=== PATIENT | female | born 1970 | race Caucasian/White ===

== ENCOUNTER 2017-04-29 16:10 | Emergency (ER) | payer OTHER ==
[2017-04-29] MEDS ORDERED: NORMAL SALINE 10 ML SYRINGE FLUSH IVP PRN (16:25)
[2017-04-29] MEDS: Sodium Chloride 0.9% 1,000 ML PRIMARY IV ONE (16:30)
[2017-04-29] MEDS: diphenhydrAMINE 50 MG/1 ML VIAL IVP ONE (16:34)
[2017-04-29] MEDS: methylPREDNISolone 125 MG/2 ML VIAL IVP ONE (16:36)
[2017-04-29] MEDS: Famotidine Inj 20 MG in Normal Saline Flush 10 ML IVP ONE (16:39)
[2017-04-29 16:43] VITALS: RESP 16; TEMP 97.8
[2017-04-29] MEDS: LORazepam 2 MG/1 ML VIAL IVP ONE (17:45)
--- NOTE | 2017-04-29 20:03 | PDOC ---
Skin Rash/Insect/Abscess HPI - General Chief Complaint: Integumentary Stated Complaint: STUNG BY BEE FEEL SWELLING Date Seen by Provider: 04/29/17 Time Seen by Provider: 16:25 Source: POSITIVE: Patient Exam Limitations: POSITIVE: No limitations Nurse's Notes Reviewed & Considered: Yes - History of Present Illness Initial Comments: The patient is a 46-year-old female who presents to the emergency department with a possible allergic reaction after an insect sting. She states that she was out [place] the [place] when she felt a sting on the back of her neck. 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 She states that she had pain immediately after the sting. She was able to take some Benadryl in route. She states that she does have some swelling of her tongue as well as scratchiness in her throat. She also has some pain at the site of the sting in the back of her neck. She has some generalized flushing and itching to her face. She denies itching or rash elsewhere. Have you received a tetanus shot in the past 10 years?: Yes - Patient Home Medications Home Medications: Home Medications diphenhydrAMINE Elixir [Benadryl Elixir] 25 mg PO PRN 04/29/17 methylPREDNISolone Dose Pack [Medrol Dose Pack] 1 each PO ASDIR #1 pkg 04/29/17 - Patient Allergies Allergies/Adverse Reactions: Allergies Allergy/AdvReac Type Severity Reaction Status Date / Time bee venom protein (honey bee) Allergy Anaphylaxis Verified 04/29/17 16:18 Penicillins Allergy RASH Verified 04/29/17 16:18 Past Medical History - heen HEENT History: Denies History Cardiovascular History: Denies History Respiratory History: Denies History Gastrointestinal History: Denies History Genitourinary History: Denies History Endocrine History: Denies History Musculoskeletal History: Denies History Prosthesis or Implant: No Neurological History: Multiple Sclerosis Blood Disorders: Denies History Psychiatric History: Denies History History of Sexually Transmitted Diseases: No Female Reproductive History: Hysterectomy Cancer History: Denies History In Past Year Been Physically Harmed or Verbally Threatened: No History of MDRO: No History of Other Communicable Diseases: No Tobacco Use: Never Smoker Alcohol Use: Occasionally Substance Use Type: None Previous Surgical History: Yes Type / Date of Surgery: Hyst, Appy, GB Significant Family History: No pertinent family hx Past Medical History Reviewed: Reviewed - No Changes ROS - Limitations ROS Limitations: No Limitations Constitution: DENIES: Chills, Fever Cardiovascular: REPORTS: Denies Cardiac Symptoms Respiratory: REPORTS: Denies Resp Symptoms. DENIES: Wheezing Neurological: DENIES: Headache Gastrointestinal: REPORTS: Denies GI Symptoms ENT: REPORTS: Tongue Swelling, Other (Scratchy sensation in her throat). DENIES : Congestion Skin: REPORTS: Other (Flushing and itching to her face) Skin Rash/Insect/Abscess Exam - General Appearance General Appearance: REPORTS: Alert, Cooperative, No Acute Distress - Skin Skin: REPORTS: Normal Color - Extremities Extremity: Normal ROM: (All Extremities), Normal Inspection: (All Extremities) - HEENT HEENT: POSITIVE: Head Inspection Nml, Eyes Inspection Nml, Ears Inspection Nml, Nose Inspection Nml, Pharynx Inspect. Nml (No visible swelling in the posterior oropharynx and tongue does not appear visibly swollen although the patient states it feels swollen to her) - Neck Neck: REPORTS: Trachea Midline, Other (Initially examination of her posterior neck revealed no visible erythema or obvious bite site or sting site. After the patient had been here for some time there was a small area that appears to be where the sting occurred with some small mild surrounding erythema around the site). DENIES: Lymphadenopathy - Respiratory Respiratory: REPORTS: No Respiratory Distress, Breath Sounds Normal - Cardiovascular Cardiovascular: REPORTS: Regular Rate and Rhythm, Heart Sounds Normal Skin Rash/Abscess Progress - Patient's Progress MDM / ED Course: Shortly after arrival an IV was established and the patient did receive IV Benadryl 25 mg, Pepcid 20 mg IV and Solu-Medrol 125 mg IV. She stated that her tongue and throat improved after administration of medications. She started developed some increased pain in the back of her neck at the area of the sting site. She also had some associated spasms in the back of her neck which turned into muscle tremors. She subsequently received Ativan 1 mg IV. Vital signs remained stable and she was feeling better. She was discharged home with a prescription for Medrol Dosepak which she will start tomorrow. In addition she will continue Benadryl as needed for itching or swelling. She is advised to continue ice pack to the back of her neck. Return to the emergency room if any increased swelling, difficulty breathing, any worsening or change in symptoms. Follow-up with primary care if continued symptoms in 2-3 days. - Consult Counseled: POSITIVE: Patient, Family, RE: DX, RE: Need for F/U Patient Care Time - Estimated PCT Patient Care Time (In Minutes): 25 Vital Signs - Recent Vital Signs Vital Signs: Vital Signs (Last 8 hours) Temp Pulse Resp BP Pulse Ox 04/29/17 16:20 97.8 F 71 16 127/88 96 - VS Reviewed Vital Signs Reviewed: Yes Discharge Clinical Impression: Insect sting, Allergic reaction to insect sting Discharge Disposition: Discharged to Home Condition: Stable Prescriptions / Orders: methylPREDNISolone Dose Pack [Medrol Dose Pack] 1 each PO ASDIR #1 pkg Patient Instructions Given at Discharge: Insect Bite or Sting (ED) Additional Instructions: Start Medrol Dosepak as per package instructions tomorrow. Continue Benadryl 25 -50 mg every 4-6 hours as needed for itching or swelling. Continue ibuprofen as needed for pain. Continue ice packs to the sting site. Return to the emergency room if increased swelling, difficulty breathing, any worsening or change in symptoms. Follow-up with primary care if no improvement in 2-3 days. Follow Up With: JO CORDERO [Primary Care Provider] -
== END 2017-04-29 18:04 | disposition home or self-care (01) ==
LOC: ER 16:10
DX: T63.481A Toxic effect of venom of other arthropod, accidental (unintentional), initial encounter (principal)
CPT/HCPCS: 96374; 96375; 99282; 99283; J1200; J2060; J2930; S0028; J7030